=== PATIENT | female | born 1960 | race Caucasian/White ===

== ENCOUNTER 2017-03-06 06:17 | Inpatient (IN) | payer BC ==
[2017-03-05 14:20] VITALS: BMI 25.1
[2017-03-06 06:51] LABS: INR 1.06 (0.82-1.09); PROTHROMBIN TIME (PATIENT) 11.7 SEC (9.98-11.88)
[2017-03-06 06:53] LABS: ACTIVATED PTT 31.9 SECONDS (26.9-34.4)
[2017-03-06] MEDS ORDERED: MIDAZOLAM HCL 2 MG/2 ML SINGLE DOSE VIAL ONE (07:44)
[2017-03-06] MEDS ORDERED: VASOPRESSIN 20 UNITS/ML VIAL IV ONE (07:55)
--- NOTE | 2017-03-06 08:14 | HP ---
Past Medical History - Primary Care Physician PCP:: Nicanor Mariano - Admission Chief Complaint: uterovaginal prolapse , cysto rectocele History of Present Illness: 56 yo f menopausal with uterovaginal prolapse admitted for vaginal hysterectomy .A.P repair, cynthia discussed History Source: Patient Limitations to Obtaining History: No Limitations - Past Medical History Psych: Yes: Anxiety, Depression Endocrine: Yes: Hypothyroidism - Past Surgical History Hx Myomectomy: No Hx Transabdominal Cerclage: No Additional Surgical History: pilonidial cyst removed - Smoking History Smoking history: Former smoker Have you smoked in the past 12 months: Yes Aproximately how many cigarettes per day: 3 If you are a former smoker, when did you quit?: 6 MO AGO - Alcohol/Substance Use Hx Alcohol Use: No History of Substance Use: reports: None - Social History History of Recent Travel: No Home Medications - Allergies Allergies/Adverse Reactions: Allergies Allergy/AdvReac Type Severity Reaction Status Date / Time No Known Allergies Allergy Verified 03/06/17 07:20 - Home Medications Home Medications: Ambulatory Orders Cholecalciferol (Vitamin D3) [Vitamin D3 -] 1,000 unit PO DAILY 03/05/17 Clonazepam [Klonopin] 1 mg PO DAILY 03/05/17 Levothyroxine [Synthroid -] 25 mcg PO HS 03/05/17 Paroxetine HCl [Paxil Cr] 12.5 mg PO DAILY 03/05/17 Review of Systems - Review of Systems Constitutional: reports: No Symptoms Eyes: reports: No Symptoms HENT: reports: Epistaxis Neck: reports: No Symptoms Cardiovascular: reports: No Symptoms Gastrointestinal: reports: No Symptoms Genitourinary: reports: Frequency Breasts: reports: No Symptoms Reported Musculoskeletal: reports: No Symptoms Integumentary: reports: No Symptoms Neurological: reports: No Symptoms Endocrine: reports: No Symptoms Hematology/Lymphatic: reports: No Symptoms Psychiatric: 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: 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: Vital Signs Temperature 97.8 F 03/06/17 07:20 Pulse Rate 68 03/06/17 07:20 Respiratory Rate 20 03/06/17 07:20 Blood Pressure 112/75 03/06/17 07:20 O2 Sat by Pulse Oximetry (%) 97 03/06/17 07:15 Constitutional: Yes: Well Nourished, No Distress, Calm Eyes: Yes: WNL, Conjunctiva Clear, EOM Intact HENT: Yes: WNL, Atraumatic, Normocephalic Neck: Yes: WNL, Supple, Trachea Midline Cardiovascular: Yes: WNL, Regular Rate and Rhythm Respiratory: Yes: WNL, Regular, CTA Bilaterally Gastrointestinal: Yes: WNL ...Rectal Exam: Yes: WNL Renal/: Yes: WNL Pelvis: Yes: WNL External Genitalia: Yes: Cystocele, Rectocele Internal Exam Deferred: No Vaginal Exam: Yes: Normal Cervix: Yes: Other (second degree prolapsed) Uterus: Yes: Normal Adnexa: Not Palpable: Left, Right Breast(s): Yes: WNL Musculoskeletal: Yes: WNL Extremities: Yes: WNL Edema: No Integumentary: Yes: WNL Neurological: Yes: WNL, Alert, Oriented ...Motor Strength: WNL Psychiatric: Yes: WNL, Alert, Oriented Problem List - Problem (1) Uterovaginal prolapse, incomplete Code(s): N81.2 - INCOMPLETE UTEROVAGINAL PROLAPSE (2) Cystocele with rectocele Code(s): N81.10 - CYSTOCELE, UNSPECIFIED N81.6 - RECTOCELE Assessment/Plan vaginal hysterectomy, A.P repair, rba discussed with patient
[2017-03-06] MEDS ORDERED: ROCURONIUM BROMIDE 50 MG/5 ML VIAL ONE (08:15)
[2017-03-06] MEDS ORDERED: PROPOFOL 20 ML ONE (08:15)
[2017-03-06] MEDS ORDERED: ceFAZolin SODIUM 1 GM VIAL IVPB ONE (08:25)
[2017-03-06] MEDS ORDERED: ePHEDrine SULFATE 50 MG/1 ML AMPULE ONE (08:49)
[2017-03-06] MEDS ORDERED: metroNIDAZOLE 0.75% VAGINAL GEL 70 GM TUBE ONE (09:23)
[2017-03-06] MEDS ORDERED: NEOSTIGMINE METHYLSULFATE 0.5 MG/ML - 10 ML MDV ONE (09:52)
[2017-03-06] MEDS ORDERED: ONDANSETRON 4 MG/2 ML VIAL IVPB PRN (10:09)
[2017-03-06] MEDS ORDERED: oxyCODONE HCL 5 MG TABLET PO PRN ×2 (10:09)
[2017-03-06] MEDS ORDERED: PROMETHAZINE HCL 25 MG/1 ML VIAL IVPUSH PRN (10:09)
[2017-03-06] MEDS ORDERED: IBUPROFEN 600 MG TABLET (FP) PO PRN (10:09)
[2017-03-06] MEDS ORDERED: ONDANSETRON 4 MG/2 ML VIAL IVPUSH PRN (10:09)
[2017-03-06] MEDS ORDERED: IBUPROFEN 800 MG/8 ML IJ IVPB PRN (10:09)
[2017-03-06] MEDS ORDERED: ELECTROLYTE-148 SOLN 1,000 ML IV SCH (10:15)
[2017-03-06] MEDS ORDERED: HYDROmorphone *PCA* 10MG/50ML DISP.SYRIN PCA SCH (10:15)
[2017-03-06] MEDS ORDERED: HYDROmorphone *PCA* 10MG/50ML DISP.SYRIN PCA ONE (10:18)
[2017-03-06] MEDS: clonazePAM 0.5 MG TABLET PO SCH (14:31)
[2017-03-06] MEDS: PARoxetine HCL 10 MG TABLET (FP) PO SCH (14:31)
--- NOTE | 2017-03-06 15:19 | OP ---
DATE OF OPERATION: 03/06/2017 PREOPERATIVE DIAGNOSES: Uterovaginal prolapse. Cystocele. Rectocele. POSTOPERATIVE DIAGNOSES: Uterovaginal prolapse. Cystocele. Rectocele. PROCEDURE: Vaginal hysterectomy, anterior and posterior repair, perineoplasty, and left salpingo-oophorectomy and right salpingectomy. 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 ANESTHESIOLOGIST: Armand Thomas MD ESTIMATED BLOOD LOSS: Was 150 mL. DESCRIPTION OF PROCEDURE: Patient was taken to operating room, had adequate general anesthesia. In dorsal lithotomy position, abdomen and vagina were prepped and draped, and examination under anesthesia revealed cervix protruding through the vagina. Vaginal introitus was relaxed and gaping. There was a cystocele and a rectocele. Then, the anterior lip of the cervix was grasped with 2 single-hook tenaculum and then anterior and posterior vaginal mucosa was infiltrated with dilute solution of vasopressin. Then, with the cautery circumferentially, the vaginal mucosa was cut around the cervix and then, with the Metzenbaum, posterior wall of the vagina was from the cervix. Then, the peritoneum was grasped with a pickup and then entered with Metzenbaum scissors. Then, the weighted speculum was advanced into the posterior cul-de-sac. Then, the bladder was further dissected with Metzenbaum scissors and pushed up. Then, uterosacral ligament was identified and clamped and cut with Costa clamp and the clamp replaced with 0 Vicryl suture bilaterally and held with a Fernanda clamp. Then, anterior peritoneum was grasped with a pickup and entered and then the bladder was lifted. Uterine artery was identified bilaterally, clamped with Costa clamp, cut and the clamp replaced with 0 Vicryl suture bilaterally. Then, parauterine area was grasped with LigaSure cautery, cauterized and cut until the upper pedicle was reached. There was a left approximately 5-cm smooth ovarian cyst which appeared to be consistent with dermoid. The right ovary and tube were normal. The left tube also was checked and was normal. At this time, the infundibulopelvic ligament was identified on the left side, grasped with Costa clamp, cut and the clamp replaced with 0 Vicryl suture and then with 0 Vicryl tie. Then, on the right side, a Costa clamp was placed at the cornua region of the uterus and then the upper pedicle was from the uterus and sutured with 0 Vicryl suture first and then with 0 Vicryl tie. The specimen was removed, which included the cervix, uterus, left tube and ovary. Then, the right tube was grasped with [place] and then cauterized at the mesosalpinx area, and the right tube was removed as well. Then, no bleeding was seen. Peritoneum was closed with 0 Vicryl pursestring suture and then uterosacral ligament was brought together with interrupted suture of 0 Vicryl. At this time, the vaginal mucosa anteriorly was injected with vasopressin, and the anterior vaginal mucosa was from the bladder with Metzenbaum scissors and blunt dissection. Then, the cystocele was repaired with pursestring suture of 3-0 Vicryl. Excess vaginal mucosa was removed and then vaginal mucosa was brought together with interrupted suture of 3-0 Vicryl. At this time, the posterior perineal skin was removed with Metzenbaum scissors and then posterior vaginal mucosa was infiltrated with vasopressin solution. Then, posterior vaginal mucosa was undermined with Metzenbaum scissors and from the rectum. Then, excess vaginal mucosa was removed and then the posterior muscle was brought together with interrupted suture of 0 Vicryl. Then, posterior vaginal mucosa and perineum were repaired in episiotomy fashion with 2-0 Vicryl and 3-0 Vicryl interrupted suture. Then, examination of the rectum showed it to be intact. Bladder: The Fragoso with clear urine. The vaginal vault was packed with a 2-inch Iodoform gauze and Methergine vaginal cream. Patient tolerated the procedure well, left the OR in good condition. Susan [id number]
[2017-03-06] MEDS: CEFAZOLIN (PRE-DOCKED) 50 ML IVPB SCH (17:12)
[2017-03-06] MEDS ORDERED: LEVOTHYROXINE NA 25 MCG TABLET (FP) PO SCH (22:00)
[2017-03-07] MEDS: CEFAZOLIN (PRE-DOCKED) 50 ML IVPB SCH (02:31)
[2017-03-07] MEDS ORDERED: PCA PUMP KEY 1 EACH EACH ONE (06:07)
[2017-03-07 08:38] VITALS: BP 115/73; PULSE 70; TEMP 97.9
[2017-03-07 08:50] LABS: MCH 30.1 pg (25.7-33.7); MCHC 32.7 g/dl (32.0-36.0); MEAN CELL VOLUME 91.9 fl (80-96); MEAN PLT VOLUME 9.4 fl (7.5-11.1); PLATELET COUNT 196 K/MM3 (134-434); RDW 13.7 % (11.6-15.6); WHITE BLOOD COUNT 11.9 K/mm3 (4.0-10.0)
[2017-03-07 09:06] LABS: CALCIUM 8.9 mg/dL (8.5-10.1); COCKROFT - GAULT 88.995; CREATININE 0.7 mg/dL (0.55-1.02)
[2017-03-07] MEDS: clonazePAM 0.5 MG TABLET PO SCH (09:40)
[2017-03-07] MEDS: PARoxetine HCL 10 MG TABLET (FP) PO SCH (09:57)
[2017-03-07] MEDS ORDERED: ENOXAPARIN NA (PORCINE) 40 MG/0.4 ML DISP.SYRIN SQ SCH (10:00)
--- NOTE | 2017-03-07 11:38 | DS ---
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 Vital Signs: Vital Signs Temperature 97.9 F 03/07/17 08:00 Pulse Rate 70 03/07/17 08:00 Respiratory Rate 20 03/07/17 08:00 Blood Pressure 115/73 03/07/17 08:00 O2 Sat by Pulse Oximetry (%) 100 03/06/17 14:00 Constitutional: Yes: Well Nourished, No Distress, Calm Eyes: Yes: WNL, Conjunctiva Clear, EOM Intact HENT: Yes: WNL, Atraumatic, Normocephalic Neck: Yes: WNL, Supple, Trachea Midline Cardiovascular: Yes: WNL, Regular Rate and Rhythm Respiratory: Yes: WNL, Regular, CTA Bilaterally Gastrointestinal: Yes: WNL ...Rectal Exam: Yes: WNL Renal/: Yes: WNL External Genitalia: Yes: Normal Breast(s): Yes: WNL Musculoskeletal: Yes: WNL Extremities: Yes: WNL Edema: No Integumentary: Yes: WNL Neurological: Yes: WNL, Alert, Oriented ...Motor Strength: WNL Psychiatric: Yes: WNL, Alert, Oriented Labs: CBC, BMP 03/07/17 08:00 03/07/17 08:00 Discharge Summary Reason For Visit: INCOMPLETE UTEROVAGINAL PROLAPSE Current Active Problems Cystocele with rectocele (Acute) Uterovaginal prolapse, incomplete (Acute) Procedures: Principal: vaginal hysterectomy, ap repair. pernioplasty Condition: Good - Instructions Diet, Activity, Other Instructions: regular diet, no intercourse - Home Medications Comprehensive Discharge Medication List: Ambulatory Orders Cholecalciferol (Vitamin D3) [Vitamin D3 -] 1,000 unit PO DAILY 03/05/17 Clonazepam [Klonopin] 1 mg PO DAILY 03/05/17 Levothyroxine [Synthroid -] 25 mcg PO HS 03/05/17 Paroxetine HCl [Paxil Cr] 12.5 mg PO DAILY 03/05/17
[2017-03-07] MEDS ORDERED: DOCUSATE SODIUM 100 MG CAPSULE (FP) PO ONE (11:44)
--- NOTE | 2017-03-07 11:44 | PN ---
Progress Note (short form) - Note Progress Note: pod 1 doing well, ambulating, passing gas. no vaginal bleeding, voids ok CBC, BMP 03/07/17 08:00 03/07/17 08:00 Last Vital Signs Temp Pulse Resp BP Pulse Ox 97.9 F 70 20 115/73 100 03/07/17 08:00 03/07/17 08:00 03/07/17 08:00 03/07/17 08:00 03/06/17 14:00 abdomen soft, non tender , no cva perineum clean, no vaginal bleeding, vaginal packing removed no calf tenderness plan d/c home, follow up off ice visit 3 weeks, instruction given Problem List - Problems (1) Uterovaginal prolapse, incomplete Code(s): N81.2 - INCOMPLETE UTEROVAGINAL PROLAPSE (2) Cystocele with rectocele Code(s): N81.10 - CYSTOCELE, UNSPECIFIED N81.6 - RECTOCELE
--- NOTE | 2017-03-08 09:00 | PATH ---
Surgical Pathology Report Patient Name: GINA VILLASEÑOR [facility]. Rec. #: [id number] /Age/Gender: 1960 (Age: 56) / F Account: [id number] Location: [facility] Taken: 03/06/2017 Received: 03/06/2017 Reported: 03/08/2017 Physicians: Nicanor Mariano M.D. Specimen(s) Received A: UTERUS,CERVIX BILATERAL FALLOPIAN TUBES & LEFT OVARY B: VAGINAL MUCOSA Clinical History Incomplete uterovaginal prolapse Final Diagnosis A. UTERUS AND CERVIX WITH BILATERAL FALLOPIAN TUBES AND LEFT OVARY, HYSTERECTOMY WITH BILATERAL SALPINGECTOMY AND LEFT OOPHERECTOMY: UTERUS AND CERVIX, 113 GRAMS, WITH ATROPHIC ENDOMETRIUM, SUPERFICIAL ADENOMYOSIS, AND CERVIX WITH ACUTE AND CHRONIC INFLAMMATION WITH REACTIVE CELLULAR CHANGES. LEFT OVARY WITH BENIGN SEROUS CYSTADENOMA. LEFT FALLOPIAN TUBE WITH BENIGN SEROUS PARATUBAL CYSTS. RIGHT FALLOPIAN TUBE WITH BENIGN SEROUS PARATUBAL CYSTS. B. VAGINAL MUCOSA, EXCISION: BENIGN SQUAMOUS MUCOSA WITH NONSPECIFIC CHRONIC INFLAMMATION. Electronically Signed Lance Frede M.D. Gross Description A. Received in formalin labeled "uterus, cervix, bilateral tubes and left ovary," is a 113 g uterus with an attached cervix and attached left ovary and left fallopian tube. The right fallopian tube is separately received within the same container. The specimen measures 9.7 cm from superior to inferior, 5.1 cm from left to right and 4.7 cm from anterior to posterior. The serosa is pink-richardson and smooth. The attached cervix measures 3 cm in length and averages 2.3 cm in diameter. The ectocervix is pink-richardson, smooth and displays attached vaginal cuff. The endocervix is unremarkable. The endometrial cavity measures 4.5 cm in length and 2.6 cm from cornu to cornu. The endometrium is richardson and averages 0.1 cm in thickness. The myometrium is richardson-pink and averages 2.3 cm in thickness. No intramural nodules are identified. The attached left fimbriated fallopian tube measures 1.6 cm in length. The outer surface is thibodeaux purple with focal small paratubal cysts. Sectioning reveals an unremarkable lumen. The attached left ovary measures 5.0 x 3.8 x 3.5 cm. The outer surface is richardson-yellow and smooth with a cystic appearance. Sectioning reveals a single large cyst containing clear serous fluid. The inner lining of the cyst is smooth. There is minimal attached ovarian parenchyma. The separately received right fimbriated fallopian tube measures 2 cm in length. The outer surface is thibodeaux purple and smooth. Sectioning reveals an unremarkable lumen. Office Equipment Technician sections are submitted in 12 cassettes as follows: 1-anterior cervix; 2-posterior cervix; 0-5-thgxkena endomyometrium; 4-9-opfmhhxdb endomyometrium; 7-left fallopian tube fimbria; 9-vxbmt-lbiarpqn of left fallopian tube; 9-10-left ovary; 11-right fallopian tube fimbria; 19-htyrr-dgadavua of right fallopian tube. B. Received in formalin labeled "vaginal mucosa," is a 4.0 x 2.5 x 0.3 cm aggregate of multiple richardson, irregular, unoriented portions of mucosal tissue. No lesions are identified. Office Equipment Technician sections are submitted in one cassette. 03/06/2017 [facility]03/06/2017
== END 2017-03-07 12:50 | disposition home or self-care (01) | DRG 743 ==
LOC: JSAMEDAYSX 06:17 → EDSTATUS 08:00 → J3W 13:45
PROVIDERS: ADMIT Obstetrics & Gynecology; ATTEND Obstetrics & Gynecology
PROC: 0UTC7ZZ Resection of Cervix, Via Natural or Artificial Opening (ICD-10-PCS; 2017-03-06)
PROC: 0JQC0ZZ Repair Pelvic Region Subcutaneous Tissue and Fascia, Open Approach (ICD-10-PCS; 2017-03-06)
PROC: 0JQC0ZZ Repair Pelvic Region Subcutaneous Tissue and Fascia, Open Approach (ICD-10-PCS; 2017-03-06)
PROC: 0WQN0ZZ Repair Female Perineum, Open Approach (ICD-10-PCS; 2017-03-06)
PROC: 0UB50ZX Excision of Right Fallopian Tube, Open Approach, Diagnostic (ICD-10-PCS; 2017-03-06)
PROC: 0UT60ZZ Resection of Left Fallopian Tube, Open Approach (ICD-10-PCS; 2017-03-06)
PROC: 0UT10ZZ Resection of Left Ovary, Open Approach (ICD-10-PCS; 2017-03-06)
PROC: 0UT97ZZ Resection of Uterus, Via Natural or Artificial Opening (ICD-10-PCS; principal; 2017-03-06 08:00)
DX: N81.2 Incomplete uterovaginal prolapse (principal); Z87.891 Personal history of nicotine dependence
CPT/HCPCS: 36415; 80048; 85027; 85610; 85730; 86850; 86900; 86901; 88302-TC; 88307-TC; 94010; 94760